=== PATIENT | female | born 1980 | race African-American/Black ===

== ENCOUNTER 2016-11-12 06:53 | Emergency (ER) | payer OTHER ==
[2016-11-12] MEDS ORDERED: ASPIRIN PO STA (06:59)
[2016-11-12] MEDS ORDERED: ADENOCARD ONE (07:00)
[2016-11-12] MEDS ORDERED: ADENOCARD IV ONE ×2 (07:04→07:07)
[2016-11-12] MEDS ORDERED: NS 1,000 ML ONE (07:04)
[2016-11-12 07:09] LABS: MANUAL DIFF NEEDED? NO
[2016-11-12 07:11] LABS: BASO% 0.5 % (0.0-0.8); EOS# 0.16 X1000 (0.0-0.7); HEMATOCRIT 42.8 % (37.0-47.0); HEMOGLOBIN 13.6 g/dL (12.0-16.0); IMM GRAN# 0.01 X1000 (0.0-0.04); IMM GRAN% 0.1 % (0.0-0.5); LYMPH# 2.57 X1000 (1.2-3.4); LYMPH% 32.4 % (20.5-51.1); MCH 28.3 PG (27-31); MCHC 31.8 g/dL (33-37); MONO# 0.71 X1000 (0.11-0.59); MONO% 8.9 % (1.7-9.3); MPV 10.5 FL (7.4-10.4); NEUT% 56.1 % (42.2-75.2); PLT 270 X1000 (130-400); RBC 4.81 XMIL (4.2-5.4)
--- NOTE | 2016-11-12 07:13 | EKG Report ---
Test Performed on : 11/12/2016 07:04:04 AM Test Reason : CHEST PAIN Blood Pressure : / mmHG Vent. Rate : 085 BPM Atrial Rate : 085 BPM P-R Int : 144 ms QRS Dur : 082 ms QT Int : 366 ms P-R-T Axes : 055 040 037 degrees QTc Int : 435 ms Normal sinus rhythm. Nonspecific ST abnormality Abnormal ECG When compared with ECG of 12-NOV-2016 06:59, (Unconfirmed) Vent. rate has decreased BY [address] less depressed in Anterior leads T wave inversion no longer evident in Inferior leads Unconfirmed Result
[2016-11-12] MEDS ORDERED: CARDIZEM CD PO ONE (07:15)
--- NOTE | 2016-11-12 07:16 | PROVIDER DOCUMENTATION ---
HPI-Cardiac General - General Chief Complaint: Palpitations Stated Complaint: PALPITATIONS Time Seen by Provider: 11/12/16 07:10 Source: patient Allergies/Adverse Reactions: Patient Allergies Allergy/AdvReac Type Severity Reaction Status Date / Time No Known Allergies Allergy Verified 11/12/16 07:02 Home Medications: Home Medication List Medication Instructions Recorded Confirmed Last Taken Type Carvedilol 25 mg PO BID 09/16/15 05/26/16 05/08/16 History Hydrochlorothiazide 25 mg PO DAILY 09/16/15 05/26/16 1 Day Ago History Lisinopril 20 mg PO DAILY 09/16/15 05/26/16 05/08/16 History Simvastatin 40 mg PO QPM 09/16/15 05/26/16 05/08/16 History Apixaban [Eliquis] 5 mg PO BID #20 tablet 10/31/15 05/26/16 05/08/16 Rx Metformin [Glucophage] 500 mg PO WBREAKFAST #30 tablet 11/19/15 05/26/16 1 Month Ago Rx Diltiazem C.d. 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 (mins): 30 Palpitation Quality: fast/pounding heart beat History of arrythmia: reports: SVT Recent use of:: reports: no stimulants Nitro Today/Relief: reports: no nitro taken today Aspirin Treatment Today: reports: no aspirin today Prior Chest Pain/Cardiac Workup: reports: echocardiography Associated Symptoms: reports: shortness of breath, weakness Similar Symptoms Previously?: Yes Recently Seen Here or By Another Healthcare Provider: No Review of Systems - Adult - REVIEW OF SYSTEMS - ADULT Constitutional: denies: chills, fever Eyes: denies: discharge, dry eyes, redness Ears, Nose, Mouth & Throat: reports: no symptoms reported Cardiovascular: reports: palpitations Respiratory: reports: shortness of breath Gastrointestinal: reports: no symptoms reported Genitourinary: reports: no symptoms reported Musculoskeletal: reports: no symptoms reported Integumentary: reports: no symptoms reported Neurological: reports: no symptoms reported Psychiatric: reports: no symptoms reported Endocrine: reports: no symptoms reported Hematologic/Lymphatic: reports: no symptoms reported Allergic/Immunologic: reports: no symptoms reported Past History - Adult - PAST MEDICAL HISTORY-ADULT Review of Records: reports: Nursing Assessment Review, Medications Reviewed, Social history reviewed & non-contributory. Major Childhood Illnesses: reports: denies history Cardiovascular: reports: HTN, palpitations, other (svt) Respiratory: reports: denies history Gastrointestinal: reports: denies history Obstetrical/Gynecological: reports: denies history Genitourinary: reports: denies history Musculoskeletal: reports: denies history Neurological: reports: denies history Psychiatric: reports: denies history Endocrine/Immune: reports: Diabetes Other Conditions: reports: denies history - PRIOR SURGERIES/PROCEDURES Surgical/Procedure History: reports: - PRIOR HOSPITALIZATIONS Prior Hospitalizations: reports: for other non-related - IMMUNIZATION STATUS Childhood Immunizations: See Nurse Assessment Flu Vaccine: See Nurse Assessment - FAMILY HISTORY Family History: reviewed, not pertinent Physical Exam-General - PHYSICAL EXAM-ADULT Initial Vital Signs Reviewed: Yes - CONSTITUTIONAL General Appearance: appears well, alert, mild distress - EYES Eyes: PERRL/EOMI - HEAD, EARS, NOSE, MOUTH & THROAT HENMT: normocephalic/atraumatic, moist mucous membranes, normal ENT inspection - NECK Neck: supple - RESPIRATORY Respiratory: lungs clear - CARDIOVASCULAR Cardiovascular: tachycardia - GASTROINTESTINAL (ABDOMEN) Abdominal Exam: soft - LYMPHATIC Lymphatic: no adenopathy - MUSCULOSKELETAL Back Exam: normal inspection Extremity: normal range of motion - SKIN Integumentary: normal color, normal turgor - NEUROLOGIC Neurologic: grossly normal - PSYCHIATRIC Psych/Mental Status: oriented x 3 Progress - PLAN OF CARE/RESULTS Progress/Plan/Lab Results: Laboratory Tests 11/12/16 11/12/16 11/12/16 07:00 07:00 07:00 WBC RBC Hgb Hct MCV MCH MCHC RDW Std Deviation Plt Count MPV Immature Gran % (Auto) Neut % (Auto) Lymph % (Auto) [place] % (Auto) Eos % (Auto) Baso % (Auto) Immature Gran # (Auto) Neut # (Auto) Lymph # (Auto) [place] # (Auto) Eos # (Auto) Baso # (Auto) PT INR APTT (Factor Assay) Sodium 137 Potassium 3.7 Chloride 102 Carbon Dioxide 26 Anion Gap 9 BUN 9 Creatinine 0.7 Estimated GFR/1.73 m2 > 60 BUN/Creatinine Ratio 13 Glucose 139 H Calculated Osmolality 275 Calcium 8.9 Magnesium 1.7 Total Bilirubin 0.40 AST 15 ALT 12 Alkaline Phosphatase 74 Creatine Kinase 66 Troponin T < 0.010 [id number] Pept 121 Total Protein 7.7 Albumin 3.5 Globulin 4.0 Albumin/Globulin Ratio 1.0 11/12/16 11/12/16 07:00 07:00 WBC 7.94 RBC 4.81 Hgb 13.6 Hct 42.8 MCV 89.0 MCH 28.3 MCHC 31.8 L RDW Std Deviation 14.1 Plt Count 270 MPV 10.5 H Immature Gran % (Auto) 0.1 Neut % (Auto) 56.1 Lymph % (Auto) 32.4 [place] % (Auto) 8.9 Eos % (Auto) 2.0 Baso % (Auto) 0.5 Immature Gran # (Auto) 0.01 Neut # (Auto) 4.45 Lymph # (Auto) 2.57 [place] # (Auto) 0.71 H Eos # (Auto) 0.16 Baso # (Auto) 0.04 PT 14.3 INR 1.08 APTT (Factor Assay) 31.4 Sodium Potassium Chloride Carbon Dioxide Anion Gap BUN Creatinine Estimated GFR/1.73 m2 BUN/Creatinine Ratio Glucose Calculated Osmolality Calcium Magnesium Total Bilirubin AST ALT Alkaline Phosphatase Creatine Kinase Troponin T [id number] Pept Total Protein Albumin Globulin Albumin/Globulin Ratio Orders Category Date Time Status Cardiac Monitoring DIRECTED Care 11/12/16 06:59 Active Oxygen Therapy- ED Nursing DIRECTED Care 11/12/16 06:59 Active Saline Loc NOW Care 11/12/16 06:59 Active CHEST-2 VIEWS [RAD] Stat Exams 11/12/16 06:59 Taken CBC WITH ELECTRONIC DIFF [HEME] Stat Lab 11/12/16 07:00 Completed CK PROFILE [SP CHEM] Stat Lab 11/12/16 07:00 Completed COMPREHENSIVE METABOLIC PANEL [CHEM] Stat Lab 11/12/16 07:00 Completed MAGNESIUM [CHEM] Stat Lab 11/12/16 07:00 Completed PRO B-NATRIURETIC PEPTIDE Stat Lab 11/12/16 07:00 Com[address]IME WITH INR PL [COAG] Stat Lab 11/12/16 07:[address] [COAG] Stat Lab 11/12/16 07:00 Completed TROPONIN T Stat Lab 11/12/16 07:00 Completed 0.9% Sodium Chloride Inj [Ns] 1,000 ml Med 11/12/16 07:04 Discontinued .ROUTE As Directed Adenosine [Adenocard] Med 11/12/16 07:07 Discontinued 12 mg IV NOW ONE Adenosine [Adenocard] Med 11/12/16 07:00 Discontinued 18 mg .ROUTE .STK-MED ONE Adenosine [Adenocard] Med 11/12/16 07:04 Discontinued 6 mg IV NOW ONE Aspirin Med 11/12/16 06:59 Discontinued 325 mg PO STAT STA Diltiazem C.d. [Cardizem Cd] Med 11/12/16 07:15 Discontinued 120 mg PO NOW ONE EKG [EKG] Stat Ther 11/12/16 06:59 Draft EKG [EKG] Stat Ther 11/12/16 07:39 Draft Vital Signs - 24 hr 11/12/16 11/12/16 11/12/16 06:58 07:08 07:09 Temperature 98.3 F Pulse Rate 165 H 95 H Respiratory 16 18 Rate Blood Pressure 162/131 156/107 O2 Sat by Pulse 100 100 Oximetry 11/12/16 07:25 Temperature Pulse Rate 80 Respiratory 18 Rate Blood Pressure 147/101 O2 Sat by Pulse 93 L Oximetry - EKG 1 Time of EKG reading by physician:: 07:00 EKG Read and Signed by:: Calderon Hurtado EKG Interpretation (*Must complete 3 of following elements*): Abnormal Rate: 160 Rhythm: svt [place]: normal QRS: normal ST Wave: non-specific ST changes 2 Time of EKG reading by physician:: 07:05 EKG Read and Signed by:: Calderon Hurtado EKG Interpretation (*Must complete 3 of following elements*): Normal Rate: 85 Rhythm: sinus [place]: normal QRS: normal [place] Interval: normal ST Wave: normal Prior EKG Comparison: changes noted Departure - Departure Time of Disposition Order: 08:11 DIAGNOSIS: Sustained SVT Disposition: HOME 01 Certified Medical Emergency: Emergent Condition: Stable Additional Instructions: ED Follow Up Instructions: You have been treated by a care provider in the Emergency Department. These instructions are being provided to you so you can have an understanding of how to care for yourself upon discharge. Upon discharge from the Emergency Department, you are responsible for making arrangements for follow-up care by a physician of your choice. Take all prescribed medications as directed. Return to the Emergency Department immediately for any new or worsening symptoms. You may call the Physician Referral phone number at [phone] to obtain a list of Physicians who are taking new patients.
[2016-11-12 07:27] LABS: INR 1.08 (0.86-1.15); PROTIME 14.3 Seconds (12.1-15.5)
[2016-11-12 07:28] LABS: AGAP 9; ALBUMIN 3.5 g/dL (3.5-5.0); ALKALINE PHOSPHATASE 74 U/L (32-104); BUN 9 mg/dL (8-22); CALCIUM 8.9 mg/dL (8.8-10.2); CHLORIDE 102 mmol/L (98-107); CK PROFILE 66 U/L (24-173); COSMO 275; GOT 15 U/L (10-30); GPT 12 U/L (10-36); MAGNESIUM 1.7 mg/dL (1.5-2.7); POTASSIUM 3.7 mmol/L (3.5-5.1); PTT PL 31.4 Seconds (22.6-43.9); SODIUM 137 mmol/L (136-145); TCO2 26 mmol/L (25-35); TOTAL PROTEIN 7.7 g/dL (6.3-8.3)
--- NOTE | 2016-11-12 07:41 | EKG Report ---
Test Performed on : 11/12/2016 06:59:36 AM Test Reason : pain Blood Pressure : / mmHG Vent. Rate : 160 BPM Atrial Rate : 117 BPM P-R Int : 000 ms QRS Dur : 082 ms QT Int : 298 ms P-R-T Axes : 000 058 -35 degrees QTc Int : [address] & T wave abnormality, consider inferior ischemia Abnormal ECG When compared with ECG of 26-MAY-2016 08:05, Vent. rate has increased BY [address] now depressed in Anterior leads T wave inversion now evident in Inferior leads Unconfirmed Result
--- NOTE | 2016-11-12 08:14 | Diag Imaging Result Document ---
PROCEDURE NAME: CHEST-2 VIEWS - 11/12/2016 FRONTAL AND LATERAL CHEST, TWO VIEWS: COMPARISON: Compared to 01/15/2016. FINDINGS: The lungs are well expanded. The heart is borderline mildly prominent. The vessels are not distended. No pneumonia. No pleural effusions. No free air beneath the diaphragm. IMPRESSION: Borderline mildly prominent heart, otherwise negative exam.
[2016-11-12] MEDS ORDERED: NS 1,000 ML IV PRN (08:43)
[2016-11-12 08:48] VITALS: BP 166/091
== END 2016-11-12 08:27 | disposition home or self-care (01) ==
LOC: P.ED 06:53
DX: I47.1 Supraventricular tachycardia (principal); R94.31 Abnormal electrocardiogram [ECG] [EKG]; R00.2 Palpitations; R06.02 Shortness of breath; R53.1 Weakness; I10 Essential (primary) hypertension; E11.9 Type 2 diabetes mellitus without complications; Z79.01 Long term (current) use of anticoagulants; Z79.899 Other long term (current) drug therapy
CPT/HCPCS: 71020; 80053; 82550; 83735; 83880; 84484; 85025; 85610; 85730; 93005; 96361; 96374; J0153; J7030